=== PATIENT | female | born 2000 | race Caucasian/White ===

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

== ENCOUNTER 2024-02-19 11:36 | Emergency (ER) | payer SELFPAY ==
[~2024-02-19] VITALS: Ht 170.2 cm; Wt 131.8 kg
[~2024-02-19 11:36] MED LIST changes: +FLEXERIL 1010 MG/TAB PO
[2024-02-19 12:59] VITALS: BP 140/94; PULSE 68; TEMP 98.4
== END 2024-02-19 12:59 | disposition home or self-care (01) ==
LOC: COL.ER 11:36
DX: S61.012A Laceration without foreign body of left thumb without damage to nail, initial encounter (principal); Z23 Encounter for immunization; W25.XXXA Contact with sharp glass, initial encounter